=== PATIENT | male | born 1955 | race African-American/Black ===

== ENCOUNTER 2020-03-22 20:34 | Emergency (ER) | payer MEDICARE, MEDICAID ==
[~2020-03-22] VITALS: Ht 171.4 cm; Wt 82.0 kg
[~2020-03-22 20:34] MED LIST: ASPI-1158 PO; ATOR40TA70 PO; ENAL10TA PO; LOSA50TA41 PO; METO-539 PO; PRIL20 PO; TAMS-11 PO
[2020-03-22] MEDS ORDERED: KETOROLAC 30MG/ML VIAL IV STA (22:48)
[2020-03-22] MEDS ORDERED: CLINDAMYCIN 900 MG in DEXTROSE 5% WATER 50 ML IV ONE (23:00)
[2020-03-22] MEDS ORDERED: MORPHINE SULFATE 2 MG/ML CPJ (NOT FOR IM USE) IV ONE (23:00)
[2020-03-22] MEDS ORDERED: SODIUM CHLORIDE 0.9% 1,000 ML IV ONE (23:00)
[2020-03-22 23:46] LABS: BASOPHILS % 1.2 % (0.0-2.0); EOSINOPHILS % 2.3 % (0.0-5.0); HEMATOCRIT. 38.5 % (42.0-52.0); HEMOGLOBIN. 13.3 g/dL (14.0-18.0); LYMPHOCYTES % 28.9 % (20.0-50.0); MEAN CORPUSCULAR HEMOGLOBIN 29.2 pg (28.0-32.0); MEAN CORPUSCULAR VOLUME 84.8 fL (80.0-94.0); MEAN PLATELET VOLUME 8.4 fl (7.4-10.4); MONOCYTES % 9.1 % (2.0-8.0); NEUTROPHILS % 58.5 % (40.0-76.0); PLATELET 379 x1000/uL (130-400); RED BLOOD CELL COUNT 4.54 mill/uL (4.7-6.1); RED CELL DISTRIBUTION WIDTH 14.3 % (11.6-14.6)
[2020-03-22 23:50] LABS: PROTHROMBIN TIME 10.9 sec (9.6-11.0)
[2020-03-22 23:56] LABS: CHLORIDE 108 mEq/L (98-107)
[2020-03-23] MEDS ORDERED: IOHEXOL-300 100 ML BOTTLE ONE ×2 (05:25→05:29)
[2020-03-23] MEDS ORDERED: ENALAPRIL 5MG TABLET PO SCH (07:00)
[2020-03-23] MEDS ORDERED: METOPROLOL TARTRATE 50MG TABLET PO ONE (07:00)
[2020-03-23] MEDS ORDERED: HYDROCODONE/ACETAMINOPHEN 5/325MG TABLET PO ONE (07:00)
[2020-03-23 07:26] VITALS: BP 184/111
== END 2020-03-23 08:01 | disposition short-term general hospital (02) ==
LOC: ER 20:34
DX: S71.111A Laceration without foreign body, right thigh, initial encounter (principal); L03.115 Cellulitis of right lower limb; F12.10 Cannabis abuse, uncomplicated; I10 Essential (primary) hypertension; Z79.899 Other long term (current) drug therapy; Z86.73 Personal history of transient ischemic attack (TIA), and cerebral infarction without residual deficits; Z79.82 Long term (current) use of aspirin; V03.90XA Pedestrian on foot injured in collision with car, pick-up truck or van, unspecified whether traffic or nontraffic accident, initial encounter; Y93.89 Activity, other specified; Y92.488 Other paved roadways as the place of occurrence of the external cause
CPT/HCPCS: 36415; 73700; 80053; 84145; 84484; 85025; 85610; 87040; 93005; 96365; 96375; 99285; J1885; J2270; J3490; J7030; J7060; Q9967

== ENCOUNTER 2024-10-28 21:35 | Emergency (ER) | payer BC, MEDICAID ==
[~2024-10-28] VITALS: Ht 177.8 cm; Wt 83.0 kg
[~2024-10-28 21:35] MED LIST changes: -ASPI-1158 PO; +ASPI-1406 PO; +ENAL-77 PO; -ENAL10TA PO; -TAMS-11 PO; +TAMS-54 PO
[2024-10-28 21:36] VITALS: TEMP 36.7; O2SAT 99
[2024-10-28] MEDS ORDERED: LIDO700A30 TP (23:33)
[2024-10-28] MEDS ORDERED: IBUP-2029 MT (23:33)
[2024-10-29] MEDS ORDERED: LOSA50TA41 PO (00:33)
[2024-10-29] MEDS ORDERED: METO-539 PO (00:33)
[2024-10-29] MEDS ORDERED: ENAL-77 PO (00:33)
[2024-10-29] MEDS: KETOROLAC 30MG/ML VIAL IM ONE (00:37)
[2024-10-29] MEDS: METOPROLOL TARTRATE 50MG TABLET PO ONE (00:57)
[2024-10-29] MEDS: LOSARTAN 50 MG TABLET PO ONE (00:58)
[2024-10-29] MEDS ORDERED: ENALAPRIL 5MG TABLET PO SCH (01:00)
[2024-10-29 02:40] VITALS: BP 193/98; PULSE 82; RESP 18; O2SAT 100
== END 2024-10-29 02:35 | disposition home or self-care (01) ==
LOC: ER 21:35
DX: S20.212A Contusion of left front wall of thorax, initial encounter (principal); I10 Essential (primary) hypertension; E78.00 Pure hypercholesterolemia, unspecified; Z79.899 Other long term (current) drug therapy; Z79.82 Long term (current) use of aspirin; Z86.73 Personal history of transient ischemic attack (TIA), and cerebral infarction without residual deficits; W01.0XXA Fall on same level from slipping, tripping and stumbling without subsequent striking against object, initial encounter; Y93.89 Activity, other specified; Y92.89 Other specified places as the place of occurrence of the external cause; Y99.8 Other external cause status
CPT/HCPCS: 99283; 71101; 96372; J1885

== ENCOUNTER 2024-11-02 00:34 | Inpatient (IN) | payer BC, MEDICAID ==
[2024-11-02] VITALS (7 sets, daily range): BP systolic 118–179; BP diastolic 79–95; PULSE 69–77; RESP 16–20; TEMP 35.5–36.6; O2SAT 95–99
[~2024-11-02] VITALS: Ht 170.2 cm; Wt 69.4 kg
[~2024-11-02 00:34] MED LIST changes: +IBUP-2029 MT; +LIDO700A30 TP
[2024-11-02 02:02] LABS: CHLORIDE 106 mEq/L (98-107); POTASSIUM 3.9 mEq/L (3.5-5.1); SODIUM 141 mEq/L (136-145)
[2024-11-02 02:03] LABS: CALCIUM 9.2 mg/dL (8.7-10.4); CARBON DIOXIDE 27 mEq/L (21-32)
[2024-11-02 02:08] LABS: BASOPHILS % 0.7 % (0.0-2.0); CREATININE 1.3 mg/dL (0.6-1.3); EOSINOPHILS % 3.7 % (0.0-5.0); GLUCOSE 96 mg/dL (70-105); HEMOGLOBIN. 12.2 g/dL (14.0-18.0); LYMPHOCYTES % 38.3 % (20.0-50.0); MEAN CORPUSCULAR HEMOGLOBIN 27.6 pg (28.0-32.0); MEAN CORPUSCULAR HGB CONC 32.9 g/dL (31.0-37.0); MONOCYTES % 6.2 % (2.0-8.0); NEUTROPHILS % 51.1 % (40.0-76.0); PLATELET 318 x1000/uL (130-400); RED BLOOD CELL COUNT 4.41 mill/uL (4.7-6.1); RED CELL DISTRIBUTION WIDTH 13.9 % (11.6-14.6); UREA NITROGEN BLOOD 17 mg/dL (9-23); WHITE BLOOD COUNT 10.4 x1000/uL (4.5-11.0)
[2024-11-02 02:09] LABS: TROPONIN I HIGH SENSITIVITY 4 ng/L (3.0-53)
[2024-11-02 02:10] LABS: ALANINE AMINOTRANSFERASE 25 IU/L (10-49); ALBUMIN 3.9 g/dL (3.2-4.8); ASPARTATE AMINOTRANSFERASE 19 IU/L (<34); BILIRUBIN DIRECT < 0.1 mg/dL (<=3.0)
[2024-11-02 02:11] LABS: BILIRUBIN TOTAL 0.3 mg/dL (0.1-1.0); PROTEIN TOTAL 6.4 g/dL (6.0-8.3)
[2024-11-02 02:16] LABS: PROTHROMBIN TIME 10.7 sec (9.6-11.0)
[2024-11-02] MEDS: KETOROLAC 15MG/ML VIAL IM ONE (02:26)
[2024-11-02] MEDS: LIDOCAINE 5% PATCH TOP SCH ×2 (02:28→09:09)
[2024-11-02 03:08] LABS: CLARITY URINE CLEAR (CLEAR); COLOR URINE YELLOW (YELLOW); GLUCOSE URINE NEGATIVE (NEGATIVE); KETONES URINE NEGATIVE (NEGATIVE); LEUKOCYTE ESTERASE URINE NEGATIVE (NEGATIVE); NITRITE URINE NEGATIVE (NEGATIVE); OCCULT BLOOD URINE NEGATIVE (NEGATIVE); PROTEIN URINE NEGATIVE (NEGATIVE); SPECIFIC GRAVITY URINE 1.016 (1.005-1.030)
[2024-11-02 03:56] LABS: TROPONIN I HIGH SENSITIVITY 4 ng/L (3.0-53)
[2024-11-02] MEDS: GABAPENTIN 100MG CAPSULE PO SCH (06:07)
[2024-11-02] MEDS: LOSARTAN 50 MG TABLET PO SCH (06:07)
[2024-11-02] MEDS: HYDROCODONE/ACETAMINOPHEN 10/325MG TABLET PO PRN (06:15)
[2024-11-02] MEDS ORDERED: PANTOPRAZOLE SODIUM 40 MG/VIAL IV SCH (09:00)
[2024-11-02] MEDS: ENOXAPARIN 40MG/0.4ML SYR SUBCUT SCH (09:06)
[2024-11-02] MEDS: ASPIRIN 81MG TABLET PO SCH (09:06)
[2024-11-02] MEDS: PANTOPRAZOLE 40MG DR TABLET PO SCH (09:07)
[2024-11-02] MEDS: TAMSULOSIN HCL 0.4MG SR CAPSULE PO SCH (09:07)
[2024-11-02] MEDS ORDERED: NALOXONE HCL 0.4MG/ML VIAL IV PRN (10:00)
[2024-11-02] MEDS ORDERED: HYDR50TA PO (10:37)
[2024-11-02] MEDS ORDERED: LORA10TA7 PO (10:37)
[2024-11-02] MEDS ORDERED: NAPR-681 PO (10:37)
[2024-11-02] MEDS ORDERED: ENAL-79 PO (10:37)
[2024-11-02] MEDS ORDERED: PNEUMOCOCCAL 20-VAL CONJ-DIP CRM 0.5ML IM ONE (10:45)
[2024-11-02] MEDS ORDERED: ONDANSETRON HCL 4MG/2ML INJ IV PRN (18:15)
[2024-11-02] MEDS: ATORVASTATIN CALCIUM 40MG TABLET PO SCH (21:38)
[2024-11-02] MEDS: ZOLPIDEM TARTRATE 5MG TABLET PO PRN (21:39)
[2024-11-03] VITALS: BP 164/101; PULSE 76; RESP 18; TEMP 36.7; O2SAT 96
[2024-11-03 04:00] VITALS: BP 147/94; PULSE 82; RESP 18; TEMP 36.2; O2SAT 100
[2024-11-03] MEDS: LACTULOSE 20G/30ML UDC PO SCH (06:16)
[2024-11-03 08:00] VITALS: BP 165/84; PULSE 93; RESP 18; TEMP 36.3; O2SAT 95
[2024-11-03] MEDS: AMLODIPINE 10MG TABLET PO SCH (11:38)
[2024-11-03 12:00] VITALS: BP 165/102; PULSE 95; RESP 18; TEMP 36.3; O2SAT 93
[2024-11-03] MEDS: CLONIDINE 0.1MG TABLET PO PRN (13:02)
[2024-11-03 16:00] VITALS: BP 151/87; PULSE 80; RESP 17; TEMP 36.3; O2SAT 95
[2024-11-03 20:00] VITALS: BP 144/86; PULSE 89; RESP 20; TEMP 36.6; O2SAT 98
[2024-11-04] VITALS: BP 150/96; PULSE 100; RESP 21; TEMP 36.4; O2SAT 97
[2024-11-04 04:00] VITALS: BP 138/79; PULSE 94; RESP 21; TEMP 36.2; O2SAT 97
[2024-11-04 08:00] VITALS: BP 144/85; PULSE 87; RESP 17; TEMP 36.9; O2SAT 96
[2024-11-04 12:00] VITALS: BP 145/81; PULSE 84; RESP 18; TEMP 36.5; O2SAT 99
[2024-11-04 16:00] VITALS: BP 133/70; PULSE 88; RESP 20; TEMP 36.4; O2SAT 99
[2024-11-04] MEDS: DEXAMETHASONE 4MG/ML 1ML VIAL IV SCH (18:09)
[2024-11-04 20:00] VITALS: BP 159/90; PULSE 92; RESP 20; TEMP 36.4; O2SAT 100
[2024-11-04] MEDS: DEXT 5%/0.9% NACL 1,000 ML IV SCH (23:30)
[2024-11-05] VITALS: BP 137/87; PULSE 111; RESP 20; TEMP 36.5; O2SAT 97
[2024-11-05 04:00] VITALS: BP 119/77; PULSE 119; RESP 20; TEMP 36.3; O2SAT 99
[2024-11-05] MEDS ORDERED: SUGAMMADEX SODIUM 200MG/2ML VIAL IV ONE (06:01)
[2024-11-05] MEDS ORDERED: THROMBIN (BOVINE) 5000 UNITS/VIAL TOP ONE (06:01)
[2024-11-05] MEDS ORDERED: GENTAMICIN SULF 40MG/ML 2ML VIAL ONE (06:01)
[2024-11-05] MEDS ORDERED: LIDOCAINE HCL/EPINEPHRINE 1%-EPI 1:100,000 20ML VIAL ONE (06:01)
[2024-11-05 08:00] VITALS: BP 163/97; PULSE 89; RESP 18; TEMP 36.3; O2SAT 99
[2024-11-05 12:00] VITALS: BP 149/97; PULSE 81; PULSE 89; RESP 18; TEMP 36.2; O2SAT 99
[2024-11-12] MEDS ORDERED: DOCU-422 PO (00:51)
[2024-11-12] MEDS ORDERED: FAMO20TA8 PO (00:51)
[2024-11-12] MEDS ORDERED: CETI10TA6 PO (00:51)
[2024-11-12] MEDS ORDERED: TOPUD PO (00:51)
== END 2024-11-05 11:30 | disposition home or self-care (01) | DRG 205 ==
LOC: ER 00:57 → EDBEDREQ 01:27 → 6WST 03:09 → EDBEDREQ 03:11 → ENRESERV 03:28
PROVIDERS: ADMIT Internal Medicine; ATTEND Internal Medicine
DX: S22.32XA Fracture of one rib, left side, initial encounter for closed fracture (principal); G82.50 Quadriplegia, unspecified; M51.06 Intervertebral disc disorders with myelopathy, lumbar region; M48.061 Spinal stenosis, lumbar region without neurogenic claudication; I10 Essential (primary) hypertension; E78.00 Pure hypercholesterolemia, unspecified; W10.8XXA Fall (on) (from) other stairs and steps, initial encounter; M48.02 Spinal stenosis, cervical region; Z86.73 Personal history of transient ischemic attack (TIA), and cerebral infarction without residual deficits; Y93.89 Activity, other specified; Y92.89 Other specified places as the place of occurrence of the external cause; Y99.8 Other external cause status
CPT/HCPCS: 36415; 71045; 71250; 72131; 72141; 72148; 80048; 80076; 81003; 82962; 84484; 85025; 93005; 97162; 97530; 99285; A4606; J1100; J1580; J1650; J1885; J2004; J3490; J7042

== ENCOUNTER 2024-11-19 01:16 | Emergency (ER) | payer BC, MEDICAID ==
[~2024-11-19] VITALS: Ht 172.7 cm; Wt 78.0 kg
[~2024-11-19 01:16] MED LIST changes: +CETI10TA6 PO; +DOCU-422 PO; -ENAL-77 PO; +ENAL-79 PO; +FAMO20TA8 PO; +HYDR50TA PO; -IBUP-2029 MT; -LIDO700A30 TP; +LORA10TA7 PO; -PRIL20 PO; +TOPUD PO
[2024-11-19 01:39] VITALS: O2SAT 100
[2024-11-19] MEDS: MORPHINE SULFATE 4 MG/ML INJ (FOR IV/IM USE) IV STA (04:18)
[2024-11-19] MEDS: ONDANSETRON HCL 4MG/2ML INJ IV STA (04:18)
[2024-11-19 04:56] VITALS: BP 151/80; PULSE 71; RESP 20; TEMP 36.7; O2SAT 99
== END 2024-11-19 04:57 | disposition home or self-care (01) ==
LOC: ER 01:16
DX: R10.9 Unspecified abdominal pain (principal); R07.89 Other chest pain; R07.81 Pleurodynia; E78.00 Pure hypercholesterolemia, unspecified; I10 Essential (primary) hypertension; F14.90 Cocaine use, unspecified, uncomplicated; Z79.82 Long term (current) use of aspirin; Z79.899 Other long term (current) drug therapy; Z86.73 Personal history of transient ischemic attack (TIA), and cerebral infarction without residual deficits
CPT/HCPCS: 99283; A4606